=== PATIENT | male | born 1955 | race Caucasian/White ===

== ENCOUNTER 2022-11-17 19:05 | Emergency (ER) | payer MEDICARE, BC, SELFPAY ==
[2022-11-17] VITALS (10 sets, daily range): BP systolic 118–141; BP diastolic 81–90; PULSE 68–97; RESP 14; TEMP 36.1; O2SAT 96–98; BMI 29.4
--- NOTE | 2022-11-17 19:33 | CRLHL7_ITS ---
For Patients: As a result of the Cures Act, medical imaging exams and procedure reports are released immediately into your electronic medical record. You may view this report before your referring provider. If you have questions, please contact your health care provider. INDICATION: Palpitations TECHNIQUE: Chest 2 views. COMPARISON: None. FINDINGS: The heart is normal in size. The pulmonary vasculature is within normal limits. The lungs are clear without focal consolidation, pleural effusion or pneumothorax. Large retrocardiac air-fluid level, likely represents a large hiatal hernia. Mild degenerative changes of the spine. IMPRESSION: 1. No acute cardiopulmonary process. 2. Large retrocardiac air-fluid level, likely represents a hiatal hernia. Dictated by Lula Rose MD @ 11/17/2022 8:12:20 PM Dictated by: Lula Rose MD @ 11/17/2022 20:12:56 (Electronically Signed)
[2022-11-17 19:41] LABS: Chloride* 106 mmol/L (96-114)
[2022-11-17 19:42] LABS: Potassium* 3.9 mmol/L (3.6-5.1); Sodium* 137 mmol/L (135-149)
[2022-11-17 19:44] LABS: Creatinine* 0.8 mg/dL (0.5-1.5); Est. Creatinine Clearance* 83.34; Estimated Glomerular Filt Rate 97 ml/min
[2022-11-17 19:45] LABS: Blood Urea Nitrogen* 14 mg/dL (7-30); Carbon Dioxide* 26 mmol/L (20-32); Glucose* 94 mg/dL (60-115); Magnesium* 2.2 mg/dL (1.5-2.6)
--- NOTE | 2022-11-17 19:54 | ED_ITS ---
HPI - General Adult General Chief complaint: Chest Pain Stated complaint: Chest Tightness Time Seen by Provider: 11/17/22 19:14 Source: patient and family Mode of arrival: ambulatory Limitations: no limitations History of Present Illness HPI narrative: 67-year-old male with no prior cardiac history presents to the emergency department with a fluttering feeling in his chest that happened about 90 minutes prior to arrival. It lasted a few seconds and then was accompanied by a 1 minute follow of mild anxiety and lightheadedness. His symptoms then completely abated. He was at rest when his symptoms started, he says that it felt like his heart skipped a beat and then pumped hard a couple of times with possibly a slight flutter and then went back to normal, as stated lasting only a few seconds. There was no chest pain, no shortness of breath, there was no radiating pain of course. No nausea, no vomiting, no loss of consciousness or vertigo. No neurological changes. He reports that he has had probably 3-4 of these similar episodes over the last few months, not associated with caffeine, exertion or any other particular activities. He has no prior history of coronary artery workup, stress testing, echo or Holter monitor. There was no significant past medical history of arrhythmias. There is no significant family history of early cardiac disease. He did not try taking any medications or doing any interventions to help with his symptoms and he is asymptomatic at the time of arrival. His took his blood pressure prior to coming to the ED and it was in the 130s. Past medical history is notable for some borderline hyperlipidemia, managed by his primary care provider, has not qualified to start a statin. He denies any recent surgical history. He takes no long-term prescription meds. He does have a sulfa allergy. Socially he is a nonsmoker with no pertinent travel. He is retired [employer]. ROS is notable for the cardiac symptoms as above, otherwise denies times 12 sy stems. Related Data Home Medications Medication Instructions Recorded Confirmed calcium phosphate,dibasic 77 1 tab PO DAILY 11/17/22 11/17/22 mg-vitamin D3 400 unit tablet ferrous sulfate 325 mg (65 mg 325 mg PO DAILY 11/17/22 11/17/22 iron) tablet (iron) Allergies Allergy/AdvReac Type Severity Reaction Status Date / Time Sulfa (Sulfonamide Allergy Unknown Anaphylaxis Verified 11/17/22 19:13 Antibiotics) [facility] Social History Smoking Status: Never smoker How often do you have a drink containing alcohol: never AUDIT-C Alcohol total score: 0 Non-prescribed substance use: denies use Exam Const: Vital Signs, click to edit/add: Vital Signs - 24 hr 11/17/22 19:09 11/17/22 19:22 11/17/22 19:30 Temperature 97.0 F L Pulse Rate 69 75 Pulse Rate [Pulse Oximeter] 97 Respiratory Rate 14 Blood Pressure Blood Pressure [Le ft Upper Arm] 141/90 H Pulse Oximetry 98 97 96 Oxygen Delivery Me thod Room Air 11/17/22 19:32 11/17/22 19:33 11/17/22 19:45 Temperature Pulse Rate 76 76 73 Pulse Rate [Pulse Oximeter] Respiratory Rate Blood Pressure 136/81 Blood Pressure [Le ft Upper Arm] Pulse Oximetry 98 96 96 Oxygen Delivery Me thod 11/17/22 20:00 11/17/22 20:02 11/17/22 20:03 Temperature Pulse Rate 69 74 70 Pulse Rate [Pulse Oximeter] Respiratory Rate Blood Pressure 118/88 Blood Pressure [Le ft Upper Arm] Pulse Oximetry 96 97 97 Oxygen Delivery Me thod 11/17/22 20:15 Temperature Pulse Rate 68 Pulse Rate [Pulse Oximeter] Respiratory Rate Blood Pressure Blood Pressure [Le ft Upper Arm] Pulse Oximetry 97 Oxygen Delivery Me thod Common normals: no apparent distress General appearance: cooperative, comfortable and well kempt HENMT: Common normals: normocephalic and head/scalp atraumatic Head and scalp: normocephalic and atraumatic Mouth: oral and palatal mucosa normal Throat: posterior oropharynx normal Eye: Common normals: conjunctivae normal General eye: normal appearance of both eyes Conjunctiva: conjunctiva(e) normal Neck & C-Spine: Common normals: full ROM and no lymphadenopathy Resp: Common normals: normal respiratory effort, no use of accessory muscles and clear to auscultation bilaterally Effort & inspection: able to speak in complete sentences Auscultation: clear to auscultation bilaterally Cardio: Common normals: regular rate, regular rhythm, S1 normal heart sound, S2 normal heart sound, no murmurs and peripheral pulses 2+ throughout Rate: regular rate Rhythm: regular rhythm Heart sounds: S1 normal and S2 normal Peripheral pulses: pulses 2+ throughout GI: Common normals: Normal to inspection, nondistended, normoactive bowel sounds present, soft to palpation, non-tender and no hepatosplenomegaly Palpation: soft and no hepatosplenomegaly Extremity: Common normals: normal capillary refill and no pedal edema Neuro: Common normals: moves all extremities and no focal motor deficits Speech: speech normal Psych: Appearance: well kempt Attitude: engaged Insight: insight good Judgement: judgment good Skin: Common normals: no rashes or lesions noted General skin exam: no rashes or lesions noted Course Vital Signs Vital signs: Initial Vital Signs Temperature 97.0 F L 11/17/22 19:09 Temperature Source Temporal Artery Scan 11/17/22 19:09 Pulse Rate 97 11/17/22 19:09 Pulse Rhythm Regular 11/17/22 19:09 Respiratory Rate 14 11/17/22 19:09 Blood Pressure 141/90 H 11/17/22 19:09 Blood Pressure Mean 107 H 11/17/22 19:09 Blood Pressure Position Sitting 11/17/22 19:09 Pulse Oximetry 98 11/17/22 19:09 Oxygen Delivery Method Room Air 11/17/22 19:09 Vital Signs Temperature 97.0 F L 11/17/22 19:09 Pulse Rate 97 11/17/22 19:09 Respiratory Rate 14 11/17/22 19:09 Blood Pressure 141/90 H 11/17/22 19:09 Pulse Oximetry 98 11/17/22 19:09 Oxygen Delivery Method Room Air 11/17/22 19:09 Temperature 97.0 F L 11/17/22 19:09 Pulse Rate 68 11/17/22 20:15 Respiratory Rate 14 11/17/22 19:09 Blood Pressure 118/88 11/17/22 20:02 Pulse Oximetry 97 11/17/22 20:15 Oxygen Delivery Method Room Air 11/17/22 19:09 Medical Decision Making MDM Narrative Medical decision making narrative: Differential diagnosis including arrhythmia, coronary artery disease, congestive heart failure, esophagitis, lung disease, musculoskeletal etiology amongst others. Palpitations are most suggestive of an arrhythmia. No evidence of p ersistent arrhythmia. Likely PVC based on his description but cannot exclude AFib, SVT or other underlying arrhythmia. I would recommend a basic workup here including magnesium level, CBC TSH EKG chest x-ray etc.. He will be placed on a transport corps officer and monitored for about 2 hours. Most likely, we will not find any of these abnormalities and he will benefit from outpatient Holter monitor an d echo for further investigation. Update: Patient has remained asymptomatic during his stay here. Workup is benign. He we did instantly find a hiatal hernia which I discussed with him. I would like for her to make a follow-up appoint with his primary care provider to have an echo and Holter monitor placed. Discussed the rationale for this. Reassurance given on the benign findings and symptoms he is describing today. Discussed symptoms that would warrant ED return. He verbalizes understanding and agreement. Lab Data Lab results reviewed: Yes I reviewed the patient's lab results Labs: Lab Results 11/17/22 11/17/22 Range/Units 19:16 19:32 Sodium 137 (135-149) mmol/L Potassium 3.9 (3.6-5.1) mmol/L Chloride 106 (96-114) mmol/L Carbon Dioxide 26 (20-32) mmol/L BUN 14 (7-30) mg/dL Creatinine 0.8 (0.5-1.5) mg/dL Estimated Creat Clear 83.34 Estimated GFR 97 ml/min Glucose 94 (60-115) mg/dL Calcium 9.0 (8.4-10.6) mg/dL Magnesium 2.2 (1.5-2.6) mg/dL Troponin I < 0.01 L (0.01-0.04) ng/mL NT-Pro-B Natriuret Pep 64 pg/mL POC Troponin I 0.00 L (0.01-0.04) ng/ml Imaging Data Chest x-ray: Attestation: I have reviewed the pertinent imaging results. My impression: Hiatal hernia, no other abnormalities Radiologist's impression: IMPRESSION: 1. No acute cardiopulmonary process. 2. Large retrocardiac air-fluid level, likely represents a hiatal hernia. ECG Data Attestation: I personally reviewed and interpreted this ECG as follows: Prior ECG tracings: not available for review Interpretation: Normal sinus rhythm with rate of 71. There is a slight left axis deviation. P- waves are slightly enlarged no ST or T-wave abnormalities that would suggest any ischemia. Discharge Plan Discharge Clinical Impression: Palpitation, Hernia, hiatal Patient Disposition: Home w/ Parent or Adult Condition: Improved Instructions: Heart Palpitations (DC) Additional Instructions: I am not certain what caused your spell earlier tonight, I suspect that this was a short arrhythmia like PVCs. It could be something more worrisome like atrial fibrillation or supraventricular tachycardia. The trick is to try to catch the rhythm on a monitor. We did not notice any abnormal heart rhythm here in the emergency department. Thankfully the workup also shows that there are no signs of heart attack, blood flow problem, structural heart disease or other problems. This is good news. I would like for you to keep a symptom diary, see if there is any association with caffeine. I would also recommend that you make a follow-up appointment soon with your primary care doctor. We recommend that you have a Holter monitor placed, this is a wearable heart monitor that can often detect heart rhythm problems even once that you do not notice. I would also recommend an echo which is an ultrasound of the heart. We typically prefer that if you see a doctor outside of our health system that they order the test, otherwise it is difficult to follow-up on the results. If you have any symptoms that are accompanied by fainting or loss of consciousness or last more than a few minutes, you should come to the emergency department. You also have a hiatal hernia which is a very common condition were your stomach has pulled up into the chest cavity rather than the abdominal cavity. Sometimes people have early fullness or reflux symptoms from this but often, they are not symptomatic. This is a finding today that is not related to your symptoms most likely. No treatment is needed. Activity Level: No Restrictions Discharge Diet: Regular Prescriptions: No Action ferrous sulfate [iron] 325 mg (65 mg iron) tablet 325 mg PO DAILY calcium phos,dibas-vitamin D3 77-400 mg-unit tablet 1 tab PO DAILY Stand Alone Forms: [employer] Info Instructions
[2022-11-17 19:55] LABS: NT Pro B Type NatriureticPept* 64 pg/mL
[2022-11-17 19:57] LABS: Troponin I* < 0.01 ng/mL (0.01-0.04)
[2022-11-17 20:16] LABS: Basophils Absolute Auto 0.02 K/uL (0.00-0.30); Basophils Percent Auto 0.4 % (0.0-3.0); Hematocrit 44.3 % (37.0-53.0); Lymphocytes Absolute Auto 1.64 K/uL (0.90-2.90); Lymphocytes Percent Auto 32.7 % (20-44); Mean Corpuscular HGB Conc 34 gm/dL (32-36); Mean Corpuscular Hemoglobin 29 pg (26-34); Mean Corpuscular Volume 86 fL (80-100); Monocytes Percent Auto 7.8 % (0.0-11.0); Neutrophils Absolute Auto 2.77 K/uL (1.7-7.0); Neutrophils Percent Auto 55.1 % (42.0-72.0); Platelet Count* 168 K/uL (140-440); RDW Coefficient of Variation % 12.5 % (11.5-15.5); Red Blood Count 5.14 m/uL (4.30-5.90); White Blood Count* 5.02 K/uL (4.50-11.00)
[2022-11-17 21:06] LABS: Slide Review Reflex No
== END 2022-11-17 21:03 | disposition home or self-care (01) ==
PROVIDERS: Emergency Provider Family Medicine
DX: R00.2 Palpitations (principal); K44.9 Diaphragmatic hernia without obstruction or gangrene
CPT/HCPCS: 36415; 71046; 80048; 83735; 83880; 84443; 84484; 85025; 93005; 99283; 99284